=== PATIENT | male | born 1950 | race African-American/Black ===

== ENCOUNTER → 2016-11-21 | Outpatient (CLI) | payer BC | END | disposition home or self-care (01) | LOC: LAB 11:31 | PROVIDERS: ATTEND Urology | DX: I10 Essential (primary) hypertension (principal) ==

== ENCOUNTER → 2020-06-11 | Emergency (ER) | payer SELFPAY ==
[~2020-06-11] VITALS: Ht 185.4 cm; Wt 104.3 kg
[2020-06-11 08:35] VITALS: BP 142/96
[2020-06-11 09:23] LABS: Basophils # (auto) 0 10 ^3/uL (0-0.2); Basophils % (auto) 0.4 % (0.0-2.0); Eosinophils # (auto) 0.1 10 ^3/uL (0-0.8); Eosinophils % (auto) 1.3 % (0.0-7.0); Hematocrit 37.6 % (41.0-53.0); Hemoglobin 12.4 g/dL (13.5-17.5); Lymphocytes # (auto) 1.4 10 ^3/uL (0.4-5.4); Mean Corpuscular Hemoglobin 29.2 pg (28.0-32.0); Mean Corpuscular Volume 88.4 fL (80.0-100.0); Monocytes # (auto) 0.7 10 ^3/uL (0-1.3); Monocytes % (auto) 7.5 % (0.0-12.0); Neutrophils % (auto) 75.8 % (37.0-80.0); Platelet Count (auto) 256 10^3/uL (140-450); Red Blood Cells 4.26 10^6/uL (4.5-5.90); Red Cell Distribution Width 15.9 % (11.8-14.3); White Blood Cell 9.2 10^3/uL (4.4-10.8)
[2020-06-11 10:13] LABS: INR 1.08 (0.9-1.15); Partial Thromboplastin Time 28.2 sec (23.0-31.2)
[2020-06-11 10:14] LABS: Calcium 8.4 mg/dL (8.5-10.1); Potassium 4.3 mmol/L (3.5-5.1)
[2020-06-11 10:22] LABS: Albumin 3.1 g/dL (3.4-5.0); BUN/Creatinine Ratio 17.5; Bilirubin, Total 0.5 mg/dL (0.2-1.0)
== END | disposition home or self-care (01) ==
LOC: ER 08:30
DX: R07.9 Chest pain, unspecified (principal); I48.91 Unspecified atrial fibrillation; Z90.49 Acquired absence of other specified parts of digestive tract
CPT/HCPCS: 36415; 71046; 80053; 84443; 84484; 85025; 85610; 85730; 93005

== ENCOUNTER → 2020-06-13 | Outpatient (CLI) | payer BC, OTHER ==
[~2020-06-13] MED LIST: ADENOSINE 6 MG/2 ML INJ IV ONE; ENOXAPARIN SOD 30 MG/0.3 ML SYRINGE IV ONE; ENOXAPARIN SOD 30 MG/0.3 ML SYRINGE SC ONE; LORazepam 2MG/ML-1ML VIAL IV ONE; LORazepam 2MG/ML-1ML VIAL ONE; SODIUM CHLORIDE 0.9% 500 ML IV SCH
[2020-06-13 08:30] VITALS: BP 114/85
[2020-06-13 11:30] VITALS: BP 126/86
== END | disposition home or self-care (01) ==
LOC: CHF HDHVI 09:22
PROVIDERS: ATTEND Internal Medicine Cardiovascular Disease
DX: E55.9 Vitamin D deficiency, unspecified (principal); I49.9 Cardiac arrhythmia, unspecified; I47.1 Supraventricular tachycardia; E66.9 Obesity, unspecified; Z90.49 Acquired absence of other specified parts of digestive tract; I48.91 Unspecified atrial fibrillation
CPT/HCPCS: 36415; 82306; 83735; 93005; 96360; 96361; G0463; J0153; J1650; J2060

== ENCOUNTER 2024-05-14 16:10 | Emergency (ER) | payer OTHER ==
[~2024-05-14] VITALS: Ht 185.4 cm; Wt 116.8 kg
--- NOTE | 2024-05-14 16:27 | ED.PDOC ---
General HPI Comments 73 y.o male presents to the ED for a chief complaint of right flank pain associated with decreased urinary output that started 3-4 days ago. Patient reports pain is constant, non radiating and has no modifying factors. Patient states a prolonged, five year history of kidney stones. Patient is seeing a urologist to assess his recurrent kidney stone concerns. Patient states he may be suffering from an occlusive stone. No fever, chills, nausea, vomiting, hematuria, dysuria, or abdominal pain reported. Patient was hypertensive on arrival. Time Seen by MD: 16:19 Reviewed notes: Nurses Notes, Medications, Allergies Allergies: Coded Allergies: NO KNOWN ALLERGIES (Unverified , 06/11/20) Information Source: Patient Mode of Arrival: Ambulatory Severity: Moderate Timing: Days (3-4) Duration: Since onset Onset: Spontaneous Symptoms: Inability to void History of: Kidney stone Location: (R) Flank Modifying factors: None associated signs and symptoms: Flank Pain, Inability to Void Past Medical History PAST MEDICAL HISTORY: AFIB, Cancer, Kidney Stones Surgical History: Cholecystectomy Family History Family History: Reviewed,noncontributory to illness Social History Smoker: Non-Smoker Alcohol: Denies ETOH Use Drugs: Denies Drug Use Lives In: Home Constitutional: denies: chills, diaphoresis, fatigue, fever, malaise, sweats, weakness, others EENTM: denies: blurred vision, double vision, ear bleeding, ear discharge, ear drainage, ear pain, ear ringing, eye pain, eye redness, hearing loss, mouth pain, mouth swelling, nasal discharge, nose bleeding, nose congestion, nose pain, photophobia, tearing, throat pain, throat swelling, voice changes, others Respiratory: denies: cough, hemoptysis, orthopnea, SOB at rest, shortness of breath, SOB with excertion, stridor, wheezing, others Cardiovascular: denies: chest pain, dizzy spells, diaphoresis, Dyspnea on exertion, edema, irregular heart beat, left arm pain, lightheadedness, palpitations, PND, syncope, others Gastrointestinal: denies: abdomen distended, abdominal pain, blood streaked bowels, constipated, diarrhea, dysphagia, difficulty swallowing, hematemesis, melena, nausea, poor appetite, poor fluid intake, rectal bleeding, rectal pain, vomiting, others Genitourinary: reports: flank pain; denies: burning, dysuria, frequency, hematuria, incontinence, penile discharge, penile sore, pain, testicle pain, testicle swelling, urgency, others Neurological: denies: dizziness, fainting, headache, left sided numbness, left sided weakness, numbness, paresthesia, pre-existing deficit, right sided numbness, right sided weakness, seizure, speech problems, tingling, tremors, weakness, others Musculoskeletal: denies: back pain, gout, joint pain, joint swelling, muscle pain, muscle stiffness, neck pain, others Integumetry: denies: bruises, change in color, change in hair/nails, dryness, laceration, lesions, lumps, rash, wounds, others Allergic/Immunocompromised: denies: Difficulty Healing, Frequent Infections, Hives, Itching, others Hematologic/Lymphatic: denies: anemia, blood clots, easy bleeding, easy bruising, swollen glands, others Endocrine: denies: excessive hunger, excessive sweating, excessive thirst, excessive urination, flushing, intolerance to cold, intolerance to heat, unexplained weight gain, unexplained weight loss, others Psychiatric: denies: anxiety, bipolar disorder, depression, hopeless, panic disorder, schizophrenia, sleepless, suicidal, others All Other Systems: Reviewed and Negative Physical Exam General Appearance: Moderate Distress (Due to right flank pain concerns.), Obese HEENT: Normal ENT Inspection, Pharynx Normal, TMs Normal Neck: Full Range of Motion, Non-Tender, Normal, Normal Inspection Respiratory: Chest Non-Tender, Lungs Clear, No Accessory Muscle Use, No Respiratory Distress, Normal Breath Sounds Cardiovascular: No Edema, No JVD, No Murmur, No Gallop, Normal Peripheral Pulses, Regular Rate/Rhythm Breast Exam: Deferred Gastrointestinal: Other (Diffuse right-sided flank pain extending towards the abdomen. No definitive CVA tenderness. No signs of trauma. No pulsatile masses.) Genitalia: Deferred Pelvic: Deferred Rectal: Deferred Extremities: No calf tenderness, Normal capillary refill, Normal inspection, No rmal range of motion, Non-tender, No pedal edema Neurologic: Alert, No Motor Deficits, Normal Affect, Normal Mood, No Sensory Deficits Cerebellar Function: Normal Reflexes: Normal Skin: Dry, Normal Color, Warm Lymphatic: No Adenopathy Was a procedure done? Was a procedure done?: No Differential Diagnosis Kidney stone (Female): N/A Penile/Scrotal: Urolithiasis, Urinary Retention Urinary Problem (Male): Urinary Retention, Urolithiasis, UTI, Other (Flank pain, kidney disease) X-Ray, Labs, Meds, VS Vital Signs Date Time Temp Pulse Resp B/P (MAP) Pulse Ox O2 Delivery O2 Flow Rate FiO2 05/14/24 16:27 97.5 81 18 160/113 (129) 97 Lab Test 05/14/24 16:41 05/14/24 16:40 Range/Units Urine Color Light-yellow Yellow Urine Clarity Clear Clear Urine pH 6.0 5.0-9.0 Urine Specific [place] 1.029 1.001-1.035 Urine Protein Trace H Negative Urine Ketones Negative Negative Urine Blood Negative Negative /uL Urine Nitrite Negative Negative Urine Bilirubin Negative Negative Urine Urobilinogen Normal Negative mg/dL Urine Leukocyte Esterase Negative Negative /uL Urine RBC 1 0 - 3 /hpf Urine WBC None seen 0 - 3 /hpf Urine Squamous Epithelial Cells Few <5 /hpf Urine Bacteria None seen None Seen /hpf Urine Glucose Trace Normal mg/dL White Blood Count 6.7 4.4-10.8 10^3/uL Red Blood Count 3.99 L 4.5-5.90 10^6/uL Hemoglobin 10.5 L 13.5-17.5 g/dL Hematocrit 32.7 L 41.0-53.0 % Mean Corpuscular Volume 82.1 80.0-100.0 fL Mean Corpuscular Hemoglobin 26.2 L 28.0-32.0 pg Mean Corpuscular Hemoglobin Concent 31.9 L 32.0-36.0 g/dL Red Cell Distribution Width 17.2 H 11.8-14.3 % Platelet Count 273 140-450 10^3/uL Mean Platelet Volume 7.4 6.9-10.8 fL Neutrophils (%) (Auto) 61.0 37.0-80.0 % Lymphocytes (%) (Auto) 21.3 10.0-50.0 % Monocytes (%) (Auto) 12.2 H 0.0-12.0 % Eosinophils (%) (Auto) 4.5 0.0-7.0 % Basophils (%) (Auto) 1.0 0.0-2.0 % Neutrophils # (Auto) 4.1 1.6-8.6 10 ^3/uL Lymphocytes # (Auto) 1.4 0.4-5.4 10 ^3/uL Monocytes # (Auto) 0.8 0-1.3 10 ^3/uL Eosinophils # (Auto) 0.3 0-0.8 10 ^3/uL Basophils # (Auto) 0.1 0-0.2 10 ^3/uL Nucleated Red Blood Cells 0.1 % Sodium Level 143 136-145 mmol/L Potassium Level 4.2 3.5-5.1 mmol/L Chloride Level 112 H 98-107 mmol/L Carbon Dioxide Level 24 20-31 mmol/L Anion Gap 7 5-15 Blood Urea Nitrogen 22 9-23 mg/dL Creatinine 1.57 H 0.700-1.30 mg/dL Glomerular Filtration Rate Calc 47 >90 mL/min BUN/Creatinine Ratio 14.0 10.0-20.0 Serum Glucose 82 74-106 mg/dL Calcium Level 9.3 8.7-10.4 mg/dL Lipase 42 12-53 U/L Current Medications Medications (Trade) Dose Ordered Sig/Dominique Route Start Time Stop Time Status Last Admin Ketorolac Tromethamine (Toradol Injection) 30 mg ONCE ONCE IM 05/14/24 16:30 05/14/24 16:31 DC 05/14/24 16:58 Acetaminophen/ Hydrocodone Bitart ([place] 10/325MG Tab) 1 tab ONCE ONCE PO 05/14/24 16:30 05/14/24 16:31 DC 05/14/24 16:57 CT ABDOMEN AND PELVIS WITHOUT CONTRAST CLINICAL HISTORY: Rule out occlusive stone TECHNIQUE: Multiple contiguous axial images of the abdomen and pelvis without intravenous contrast. The images were reformatted degenerate coronal and sagittal reconstructions. All CT scans at this medical facility are performed using dose modulation techniques as appropriate to a performed exam including the following:Automated exposure control was utilized; adjustment of the MA and/or KV according to patient size; and use of iterative reconstruction technique. Radiation Dose Information: CT Dose: CTDI volume is 24.86 mGy. Dose-length product is 1587.76 mGy*cm Comparison: None FINDINGS: Evaluation of the abdomen and pelvis is limited without intravenous contrast. There is no evidence of nephrolithiasis or hydronephrosis. There is a 1.9 cm right lower pole renal cysts. Gallbladder is surgically absent. The liver, pancreas, adrenal glands, and spleen appear within normal limits. There is no gross evidence of abdominal lymphadenopathy. There is no free fluid or free air. There are gastric postsurgical changes likely related to bypass surgery. There is small hiatal hernia. The small and large bowel loops demonstrate normal caliber. There are air distended large bowel loops throughout. The abdominal aorta and IVC appear within normal limits. The bladder appears unremarkable for the degree of distention. . There is no gross evidence of a pelvic mass. There is no free fluid collection. There are bilateral fat containing inguinal hernias, right larger than left. There is eventration of the right hemidiaphragm with scarring versus atelectasis in the right lung base. The left lung base is clear. There is no acute osseous abnormality. IMPRESSION: 1. There is no acute process in the abdomen and pelvis. There is no evidence of nephrolithiasis or hydronephrosis. 2. Bilateral fat containing inguinal hernias, right larger than left. 3. Gastric postsurgical changes. There is a small hiatal hernia. HS:Y X-Ray, Labs, Meds, VS Comment All studies performed the ED were evaluated by me personally. Laboratories were only remarkable for a mild anemia and some mild elevation and the patient's creatinine. Imaging studies were reviewed by me in were unremarkable for any acute intra-abdominal process. No signs of occlusive kidney stones or hydronephrosis. Patient appears to have flank pain concerns that may be related to kidney disease issues. Advised patient to continue follow up with his primary care provider and urologist for long-term management. Patient's heart score is three. Time of 1ST Reevaluation: 18:10 Reevaluation 1ST: Improved Consultation: PCP, Urology Patient Education/Counseling: Diagnosis, Treatment, Prognosis, Pt Unresponsive Family Education/Counseling: Diagnosis, Treatment Departure 1 Departure Time of Disposition: 18:10 Impression: Primary Impression: Flank pain Additional Impression: Acute kidney injury Disposition: HOME / SELF CARE / HOMELESS Condition: Stable Additional Instructions: Advised patient utilize pain medication as needed and additionally, continue follow up with the primary care provider and urology for long-term management of kidney concerns. e-Prescriptions Hydrocodone-Acetaminophen (Hydrocodone Bitartrate/AC 5-325 mg) 1 Tab Tab 1 TAB PO Q6HP PRN, #20 TAB Prov: LYNETTE MISHRA PAC 05/14/24 Ibuprofen Micronized (Ibuprofen) 800 Mg Tab 800 MG PO Q8HP PRN, #20 TAB Prov: LYNETTE MISHRA PAC 05/14/24 Discharged With: Self, Spouse Critical Care Note Critical Care Time?: No Stability Stability form required: No I personally scribed for LYNETTE MISHRA PAC ([email or web address]) on 05/14/24 at 16:27. Electronically submitted by Jessica Jason ([facility]). I personally scribed for LYNETTE MISHRA PAC ([email or web address]) on 05/14/24 at 16:30. Electronically submitted by Jessica Jason ([facility]). I personally scribed for LYNETTE MISHRA PAC ([email or web address]) on 05/14/24 at 17:15. El ectronically submitted by Jessica Jason ([facility]). LYNETTE MISHRA PAC May 14, 2024 16:27
[2024-05-14 16:42] LABS: Urine Bacteria None Seen /hpf (None Seen); Urine WBC None Seen /hpf (0 - 3)
[2024-05-14] MEDS: HYDROcodone-ACET 10/325MG TAB PO ONE (16:57)
[2024-05-14] MEDS: KETOROLAC TROMETH 60MG/2ML VIAL IM ONE (16:58)
[2024-05-14 17:01] LABS: Basophils # (auto) 0.1 10 ^3/uL (0-0.2); Eosinophils # (auto) 0.3 10 ^3/uL (0-0.8); Hematocrit 32.7 % (41.0-53.0); Hemoglobin 10.5 g/dL (13.5-17.5); Mean Corpuscular Hemoglobin 26.2 pg (28.0-32.0); Nucleated Red Blood Cells % 0.1 %
[2024-05-14 17:04] LABS: Eosinophils % (auto) 4.5 % (0.0-7.0); Lymphocytes # (auto) 1.4 10 ^3/uL (0.4-5.4); Lymphocytes % (auto) 21.3 % (10.0-50.0); Mean Corpuscular Hgb Conc. 31.9 g/dL (32.0-36.0); Mean Corpuscular Volume 82.1 fL (80.0-100.0); Monocytes # (auto) 0.8 10 ^3/uL (0-1.3); Monocytes % (auto) 12.2 % (0.0-12.0); Neutrophils # (auto) 4.1 10 ^3/uL (1.6-8.6); Platelet Count (auto) 273 10^3/uL (140-450); Red Blood Cells 3.99 10^6/uL (4.5-5.90); Red Cell Distribution Width 17.2 % (11.8-14.3); White Blood Cell 6.7 10^3/uL (4.4-10.8)
--- NOTE | 2024-05-14 17:05 | DVH ---
CT ABDOMEN AND PELVIS WITHOUT CONTRAST CLINICAL HISTORY: Rule out occlusive stone TECHNIQUE: Multiple contiguous axial images of the abdomen and pelvis without intravenous contrast. The images were reformatted degenerate coronal and sagittal reconstructions. All CT scans at this medical facility are performed using dose modulation techniques as appropriate t o a performed exam including the following:Automated exposure control was utilized; adjustment of the MA and/or KV according to patient size; and use of iterative reconstruction technique. Radiation Dose Information: CT Dose: CTDI volume is 24.86 mGy. Dose-length product is 1587.76 mGy*cm Comparison: None FINDINGS: Evaluation of the abdomen and pelvis is limited without intravenous contrast. There is no evidence of nephrolithiasis or hydronephrosis. There is a 1.9 cm right lower pole renal c ysts. Gallbladder is surgically absent. The liver, pancreas, adrenal glands, and spleen appear within n ormal limits. There is no gross evidence of abdominal lymphadenopathy. There is no free fluid or free air. There are gastric postsurgical changes likely related to bypass surgery. There is small hiatal hernia . The small and large bowel loops demonstrate normal caliber. There are air distended large bowel l oops throughout. The abdominal aorta and IVC appear within normal limits. The bladder appears unremarkable for the degree of distention. . There is no gross evidence of a pel michael mass. There is no free fluid collection. There are bilateral fat containing inguinal hernias, rig ht larger than left. There is eventration of the right hemidiaphragm with scarring versus atelectasis in the right lung ba se. The left lung base is clear. There is no acute osseous abnormality. IMPRESSION: 1. There is no acute process in the abdomen and pelvis. There is no evidence of nephrolithiasis or hy dronephrosis. 2. Bilateral fat containing inguinal hernias, right larger than left. 3. Gastric postsurgical changes. There is a small hiatal hernia. HS:Y
[2024-05-14 17:11] LABS: Potassium 4.2 mmol/L (3.5-5.1); Sodium 143 mmol/L (136-145)
[2024-05-14 17:12] LABS: Anion Gap 7 (5-15); Carbon Dioxide 24 mmol/L (20-31)
[2024-05-14 17:13] LABS: Calcium 9.3 mg/dL (8.7-10.4)
[2024-05-14 17:16] LABS: Urine Blood Negative /uL (Negative); Urine Clarity Clear (Clear); Urine Color Light-Yellow (Yellow); Urine Protein, UAD TRACE (Negative); Urine Specific Gravity 1.029 (1.001-1.035); Urine Urobilinogen Normal (Negative)
[2024-05-14 17:18] LABS: Blood Urea Nitrogen 22 mg/dL (9-23); Glucose 82 mg/dL (74-106); Lipase 42 U/L (12-53)
[2024-05-14 17:20] LABS: Chloride 112 mmol/L (98-107)
[2024-05-14] MEDS ORDERED: IBUP-1455 PO (18:18)
[2024-05-14] MEDS ORDERED: HYDR-4902 PO (18:18)
[2024-05-14 18:47] VITALS: BP 136/99; PULSE 74; RESP 17; TEMP 98.4; O2SAT 97
== END 2024-05-14 18:50 | disposition home or self-care (01) ==
LOC: ER 16:10
DX: N17.9 Acute kidney failure, unspecified (principal); K44.9 Diaphragmatic hernia without obstruction or gangrene; K40.20 Bilateral inguinal hernia, without obstruction or gangrene, not specified as recurrent; I10 Essential (primary) hypertension; R79.89 Other specified abnormal findings of blood chemistry; Z87.442 Personal history of urinary calculi; Z90.49 Acquired absence of other specified parts of digestive tract
CPT/HCPCS: 36415; 74176; 80048; 81001; 83690; 85025; 96372; 99285; J1885